=== PATIENT | male | born 1980 | race African-American/Black ===

== ENCOUNTER 2021-05-17 00:14 | Emergency (ER) | payer OTHER ==
[~2021-05-17 00:14] MED LIST: KEFLEX500 MG PO
[2021-05-17 00:32] LABS: BASOPHIL 0.6 % (0-2); EOSINOPHIL 0.6 % (0-5); HCT 43.1 % (42.0-52.0); LYMPHOCYTE 27.1 % (15-48); MCH 29.2 pg (25.0-31.0); MCHC 32.5 g/dL (32.0-36.0); MONOCYTE 9.7 % (0-12); MPV 10.3 fL (6.0-9.5); NEUTROPHIL 61.8 % (41-80); NRBC 0; PLT 242 K/uL (150-400); RBC 4.79 M/uL (4.70-6.00); RDW 12.5 % (11.5-14.0); WBC 8.4 K/uL (4.0-10.5)
[2021-05-17 00:55] LABS: ALBUMIN 3.7 g/dL (3.4-5.0); BILIRUBIN - TOTAL 0.2 mg/dL (0.2-1.0); BUN/CREAT RATIO (CALC) 9.9 RATIO; CREATININE 1.21 mg/dL (0.67-1.17); GLOBULIN (CALCULATION) 4.2 g/dL; POTASSIUM 3.4 mmol/L (3.5-5.1); TOTAL PROTEIN 7.9 g/dL (6.4-8.2)
[2021-05-17 00:56] LABS: BILIRUBIN NEGATIVE (NEGATIVE); BLOOD TRACE-INTACT Ery/uL (NEGATIVE); CLARITY CLEAR (CLEAR); COLOR YELLOW (YELLOW); GLUCOSE (U) NORMAL (NORMAL); LEUKOCYTES NEGATIVE Leu/uL (NEGATIVE); NITRITE NEGATIVE (NEGATIVE); PROTEIN 1+ mg/dL (NEGATIVE); SPECIFIC GRAVITY >=1.030 (1.001-1.030); UROBILINOGEN 0.2 mg/dL (0.2-1.0); pH 5.5 (5.0-9.0)
[2021-05-17 01:15] LABS: BACTERIA TRACE; SQUAMOUS EPITHELIAL CELLS RARE; URINARY RBC RARE; URINARY WBC RARE
[2021-05-17 02:05] LABS: LACTIC ACID 2.8 mmol/L (0.4-1.9)
[2021-05-17] MEDS ORDERED: PROMETHEGA12.5 MG/SU PR (04:12)
[2021-05-17] MEDS ORDERED: COMPAZINE10 MG PO (04:12)
[2021-05-18] MEDS ORDERED: CAPSAICIN42.5 GM TOP (09:49)
== END 2021-05-17 05:32 | disposition home or self-care (01) ==
LOC: FER 00:14
PROVIDERS: Emergency Medicine Emergency Medical Services
DX: U07.1 COVID-19 (principal)
CPT/HCPCS: 36415; 80053; 81001; 83605; 83690; 85025; J0780; J2270; J2405; J2550; J7120; U0002

== ENCOUNTER 2021-05-18 06:53 | Emergency (ER) | payer OTHER ==
[~2021-05-18] VITALS: Ht 182.9 cm; Wt 72.6 kg
[~2021-05-18 06:53] MED LIST changes: +COMPAZINE10 MG PO; +PROMETHEGA12.5 MG/SU PR
[2021-05-18 07:25] LABS: BASOPHIL 0.8 % (0-2); EOSINOPHIL 1.2 % (0-5); HCT 45.8 % (42.0-52.0); HGB 14.5 g/dl (13.2-18.0); LYMPHOCYTE 25.2 % (15-48); MCH 28.8 pg (25.0-31.0); MCHC 31.7 g/dL (32.0-36.0); MCV 90.9 fL (78.0-100.0); MONOCYTE 7.9 % (0-12); MPV 10.2 fL (6.0-9.5); NEUTROPHIL 64.5 % (41-80); NRBC 0; PLT 265 K/uL (150-400); RBC 5.04 M/uL (4.70-6.00); RDW 12.5 % (11.5-14.0)
[2021-05-18 08:39] LABS: ALBUMIN 3.6 g/dL (3.4-5.0); BILIRUBIN - TOTAL 0.1 mg/dL (0.2-1.0); BUN/CREAT RATIO (CALC) 7.7 RATIO; CREATININE 1.04 mg/dL (0.67-1.17); GLOBULIN (CALCULATION) 3.7 g/dL; POTASSIUM 3.6 mmol/L (3.5-5.1); TOTAL PROTEIN 7.3 g/dL (6.4-8.2)
[2021-05-18 09:10] LABS: BILIRUBIN NEGATIVE (NEGATIVE); BLOOD NEGATIVE Ery/uL (NEGATIVE); CLARITY CLEAR (CLEAR); COLOR YELLOW (YELLOW); GLUCOSE (U) NORMAL (NORMAL); LEUKOCYTES NEGATIVE Leu/uL (NEGATIVE); NITRITE NEGATIVE (NEGATIVE); PROTEIN NEGATIVE (NEGATIVE); UROBILINOGEN 0.2 mg/dL (0.2-1.0); pH 7.5 (5.0-9.0)
[2021-05-18 09:14] LABS: AMPHETAMINES NEGATIVE (NEGATIVE); BARBITURATES NEGATIVE (NEGATIVE); ECSTASY (MDMA) NEGATIVE (NEGATIVE); MARIJUANA (THC) POSITIVE (NEGATIVE); METHADONE NEGATIVE (NEGATIVE); OPIATES NEGATIVE (NEGATIVE); OXYCODONE NEGATIVE (NEGATIVE)
[2021-05-18] MEDS ORDERED: CAPSAICIN42.5 GM TOP (09:49)
== END 2021-05-18 12:56 | disposition home or self-care (01) ==
LOC: FER 06:53
PROVIDERS: Emergency Medicine
DX: U07.1 COVID-19 (principal); R11.10 Vomiting, unspecified
CPT/HCPCS: 36415; 80053; 80305; 81003; 83690; 83735; 85025; 93005; J0780; J1630; J1885; J2060; J2405; J2550; J3480; J7030